=== PATIENT | female | born 1980 | race African-American/Black ===

== ENCOUNTER 2017-01-17 20:32 | Emergency (ER) | payer MEDICAID, BC ==
[~2017-01-17] VITALS: Ht 167.6 cm; Wt 97.5 kg
[~2017-01-17 20:32] MED LIST: COLACE100 MG ORAL; IBUPROFEN600 MG ORAL; IRON325 M2 PO; KOSHER PRENATA1 EACH PO; NKM
--- NOTE | 2017-01-17 21:03 | Emergency Room Report ---
History of Present Illness General Chief Complaint: Chest Pain Source: Patient Present Illness HPI Patient is a 36-year-old female presented after increased of vomiting. Patient has several days of nonbillous nonbloody vomit. Patient reported having some episodes of chest tightness after that. Patient any fever. She productive cough. Patient reports having increased pain with a deep breath. Patient reported having some gradual onset of symptoms. Allergies: Coded Allergies: No Known Allergies (Unverified , 04/15/16) Patient History Last Menstrual Period: TODAY Now: No : 3 Reviewed Nursing Documentation: PMH: Agreed, PSxH: Agreed Review of Systems All Other Systems: negative except mentioned in HPI Physical Exam Vital Signs Date Time Temp Pulse Resp B/P Pulse Ox O2 Delivery O2 Flow Rate FiO2 01/17/17 20:42 98.6 84 18 131/75 100 Room Air General Appearance: well appearing, no apparent distress, alert, GCS 15, non- toxic Head: normocephalic, atraumatic ENT: hearing grossly normal, normal voice Neck: full range of motion, supple Respiratory: no respiratory distress, speaking full sentences Gastrointestinal: normal inspection, non tender, soft, no mass, no organomegaly Musculoskeletal: no calf tenderness Neurologic: normal gait Psychiatric: mood/affect normal Skin: no rash Medical Decision Making Diagnostic Impression: Primary Impression: UTI (urinary tract infection) Additional Impression: Chest pain ER Course Patient presented for chest pain. Differential diagnosis included but was not limited to acute coronary syndrome, pulmonary embolism, pneumonia, aortic dissection, shingles, pneumothorax, aortic dissection, esophageal rupture, pericarditis. A chest x-ray one view interpreted by me showed normal cardiac size without evident infiltrate or pneumothorax. Patient's benign exam and does not appear to require any laboratory testing at this time. A urine test was negative. Patient showed evidence of urinary tract infection laboratory testing. Patient was given IM Toradol. Patient has no risk factor for pulmonary embolism. The patient is advised to follow up with primary care doctor in 1-2 days. Patient is advised to return if any worsening condition or if any changes in status that are concerning. Labs Test 01/17/17 21:10 Urine Color Brown Urine Appearance Slightly cloudy Urine pH 7 (4.5-8.0) Urine Specific [place] 1.020 (1.005-1.035) Urine Protein 3+ (NEGATIVE) Urine Glucose (UA) Negative (NEGATIVE) Urine Ketones 1+ (NEGATIVE) Urine Occult Blood 5+ (NEGATIVE) Urine Nitrite Negative (NEGATIVE) Urine Bilirubin Negative (NEGATIVE) Urine Urobilinogen 1 MG/DL (0.0-1.0) Urine Leukocyte Esterase 2+ (NEGATIVE) Urine RBC 10-15 /HPF (0 - 2) Urine WBC 5-10 /HPF (0 - 2) Urine Squamous Epithelial Cells Few /LPF (NONE/OCC) Urine Amorphous Sediment Few /LPF (NONE) Urine Bacteria Moderate /HPF (NONE) Urine HCG, Qualitative Negative EKG Diagnostic Results Rate: normal - 69 Rhythm: NSR ST Segments: no acute changes ASA given to the pt in ED: No Last Vital Signs Date Time Temp Pulse Resp B/P Pulse Ox O2 Delivery O2 Flow Rate FiO2 01/17/17 20:42 98.6 84 18 131/75 100 Room Air Status: improved Disposition: HOME, SELF-CARE Condition: Stable Scripts Cephalexin* (KEFLEX*) 500 Mg Capsule 500 MG ORAL Q6H, #28 CAP 0 Refills Prov: Kameron Tao 01/17/17 Ondansetron (Zofran) 4 Mg Tablet 4 MG ORAL Q6H Y for Nausea & Vomiting, #30 TAB 0 Refills Prov: Kameron Tao 01/17/17 Famotidine (PEPCID) 20 Mg Tablet 20 MG ORAL DAILY, #7 TAB 0 Refills Prov: Kameron Tao 01/17/17 Kameron Tao Jan 17, 2017 21:03
[2017-01-17 21:15] VITALS: BP 128/73
[2017-01-17 21:35] LABS: KETONES,URINE 1+ (NEGATIVE); NITRITE,URINE NEGATIVE (NEGATIVE); PROTEIN,URINE 3+ (NEGATIVE)
[2017-01-17 21:40] LABS: LEUKOCYTE ESTERASE ,URINE 2+ (NEGATIVE); PH,URINE 7 (4.5-8.0); UROBILINOGEN,URINE 1 MG/DL (0.0-1.0)
[2017-01-17 21:45] LABS: APPEARANCE,URINE SLIGHTLY CLOUDY
[2017-01-17 21:57] LABS: AMORPHOUS SEDIMENT,UR FEW /LPF; BACTERIA,URINE MODERATE /HPF; SQUAMOUS EPITHELIAL CELL,UR FEW /LPF (NONE/OCC)
[2017-01-17] MEDS ORDERED: ZOFRAN4 MG ORAL (22:03)
[2017-01-17] MEDS ORDERED: PEPCID20 MG ORAL (22:03)
[2017-01-17] MEDS ORDERED: KEFLEX500 MG ORAL (22:08)
[2017-01-17] MEDS ORDERED: Ketorolac 60mg Inj IM ONE (22:15)
[2017-01-17 22:16] VITALS: BP 123/76
[2017-01-17 22:17] VITALS: BP 128/73
--- NOTE | 2017-01-18 09:26 | Diagnostic Imaging Report ---
Indication: Shortness of breath Technique: Single portable AP view of the chest. Findings: Comparison: 07/16/2016 The bones and extra pulmonary soft tissues, cardiomediastinal silhouette, pulmonary vasculature and parenchyma, and pleural surfaces remain unremarkable. IMPRESSION: Negative portable AP chest, unchanged.
--- NOTE | 2017-02-04 16:20 | Cardiology Report ---
APPROVED REPORT EKG Measurement Heart [id number] Normal sinus rhythm Normal ECG
== END 2017-01-17 22:18 | disposition home or self-care (01) ==
LOC: EMR 21:00
DX: N39.0 Urinary tract infection, site not specified (principal); R07.9 Chest pain, unspecified; R05 Cough
CPT/HCPCS: 71010; 81003; 81025; 87086; 87181; 93005; 96372; 99284